=== PATIENT | male | born 1955 | race Caucasian/White ===

== ENCOUNTER 2020-03-31 02:33 | Emergency (ER) | payer OTHER ==
[2020-03-31] MEDS ORDERED: ADENOSINE INJ/PF 6 MG/2 ML SDV IV ONE ×2 (02:45→03:47)
[2020-03-31] MEDS ORDERED: NORMAL SALINE 1000 ML 1,000 ML IV ONE (02:57)
[2020-03-31 03:24] LABS: ABSOLUTE BASOPHILS # (AUTO) 0.1 10^3/uL (0.0-0.2); ABSOLUTE EOSINOPHILS # (AUTO) 0.2 10^3/uL (0.0-0.6); ABSOLUTE LYMPHOCYTES (AUTO) 3.4 10^3/uL (0.5-4.7); ABSOLUTE MONOCYTES (AUTO) 1.5 10^3/uL (0.1-1.4); ABSOLUTE NEUT (AUTO) 8.3 10^3/uL (1.7-8.2); BASOPHILS % (AUTO) 0.7 % (0-2); EOSINOPHILS % (AUTO) 1.3 % (0-6); HEMATOCRIT 48.5 % (37.9-51.0); HEMOGLOBIN 16.2 g/dL (13.5-17.0); LYMPHOCYTES % (AUTO) 25.4 % (13-45); MEAN CORPUSCULAR HEMOGLOBIN 30.1 pg (27.0-33.4); MEAN CORPUSCULAR HGB CONC 33.3 g/dL (32.0-36.0); MEAN CORPUSCULAR VOLUME 90 fl (80-97); MONOCYTES % (AUTO) 10.9 % (3-13); PLATELET COUNT 262 10^3/uL (150-450); RED BLOOD COUNT 5.37 10^6/uL (4.35-5.55); RED CELL DISTRIBUTION WIDTH 13.3 % (11.5-14.0); SEGMENTED NEUTROPHILS % (AUTO) 61.7 % (42-78); TOTAL CELLS COUNTED % (AUTO) 100 %; WHITE BLOOD COUNT 13.4 10^3/uL (4.0-10.5)
--- NOTE | 2020-03-31 03:24 | ER Document Report ---
Entered by MAXINE MANZO SCRIBE 03/31/20 0254 Acting as scribe for:KRISTINA CHILDS IV, MD ED Cardiac - General Mode of Arrival: Wheelchair Information source: Patient TRAVEL OUTSIDE OF THE [place] IN LAST 30 DAYS: No <KRISTINA CHILDS IV - Last Filed: 03/31/20 05:43> <HECTOR GONZALES Krissy - Last Filed: 03/31/20 09:14> - General Chief Complaint: Palpitations Stated Complaint: REPORTS HIGH HEART RATE Primary Care Provider: JASE DONATO MD [Primary Care Provider] - Follow up as needed Notes: This 64 year old male patient presents to the ED today with complaints of palpitations that woke him out of his sleep around 0045 this morning. Patient states that he has had similar episodes of palpitations in the past that would subside about 30-45 minutes after drinking milk; however, this episode persisted so he decided to come to the ED for evaluation. He also notes a headache, which is different from his previous episodes. He admits that he was working outside in the heat from around [id number] yesterday evening and that he drank about x4 bottles of water. He reports a family history of "heart trouble", but denies a personal history. (KRISTINA CHILDS IV) - Related Data Allergies/Adverse Reactions: No Known Allergies Allergy (Unverified 03/31/20 03:04) Past Medical History - General Information source: Patient - Social History Smoking Status: Unknown if Ever Smoked Cigarette use (# per day): No Chew tobacco use (# tins/day): No Smoking Education Provided: No Family History: Reviewed & Not Pertinent, CAD - Reports "heart trouble" Patient has suicidal ideation: No Patient has homicidal ideation: No Endocrine Medical History: Reports: Hx Diabetes Mellitus Type 2 <KRISTINA CHILDS IV - Last Filed: 03/31/20 05:43> Review of Systems - Review of Systems Constitutional: No symptoms reported EENT: No symptoms reported Cardiovascular: See HPI, Palpitations Respiratory: No symptoms reported Gastrointestinal: No symptoms reported Genitourinary: No symptoms reported Male Genitourinary: No symptoms reported Musculoskeletal: No symptoms reported Skin: No symptoms reported Hematologic/Lymphatic: No symptoms reported Neurological/Psychological: See HPI, Headaches -: Yes All other systems reviewed and negative <KRISTINA CHILDS IV - Last Filed: 03/31/20 05:43> Physical Exam - General General appearance: Alert In distress: None - HEENT Head: Normocephalic, Atraumatic Eyes: Normal Pupils: PERRL - Respiratory Respiratory status: No respiratory distress Chest status: Nontender Breath sounds: Normal Chest palpation: Normal - Cardiovascular Rhythm: Regular, Tachycardia Heart sounds: Normal auscultation Murmur: No Friction rub: No Gallop: None auscultated - Abdominal Inspection: Normal Distension: No distension Bowel sounds: Normal Tenderness: Nontender - Abdomen soft Organomegaly: No organomegaly - Back Back: Normal, Nontender - Extremities General upper extremity: Normal inspection General lower extremity: Normal inspection - Neurological Neuro grossly intact: Yes Orientation: AAOx4 [place] Coma Scale Eye Opening: Spontaneous [place] Coma Scale Verbal: Oriented [place] Coma Scale Motor: Obeys Commands [place] Coma Scale Total: 15 - Psychological Associated symptoms: Normal affect, Normal mood - Skin Skin Temperature: Warm Skin Moisture: Dry Skin Color: Normal <KRISTINA CHILDS IV - Last Filed: 03/31/20 05:43> - Vital signs Vitals: Temp Pulse BP Pulse Ox 97.9 F 174 H 140/97 H 95 03/31/20 02:38 03/31/20 02:38 03/31/20 02:38 03/31/20 02:38 Course - Laboratory Result Diagrams: 03/31/20 03:09 03/31/20 03:09 - Diagnostic Test Radiology reviewed: Reports reviewed <KRISTINA CHILDS IV - Last Filed: 03/31/20 05:43> - Laboratory Result Diagrams: 03/31/20 03:09 03/31/20 03:09 <HECTOR GONZALES - Last Filed: 03/31/20 09:14> - Re-evaluation Re-evalutation: 03/31/20 05:37 Results of ED MSE discussed with patient and patient's spouse. Patient states he recently started Januvia and has a history of elevated blood sugar levels. Patient states he also has a history of hyperthyroidism which he takes medication for. Patient states he has some burning in his chest; he is uncertain as to whether or not this is related to the nachos he ate earlier. This MD ordered a repeat EKG which does not show any evidence of any acute ST elevation or depression patterns. This MD informed the patient and patient's spouse that I plan to order a repeat Wan troponin level 3 hours from the initial for comparison given he is describing a burning in his chest. (KRISTINA CHILDS IV) 03/31/20 09:11 Patient pending a second troponin and once that results patient may be discharged home. Patient has been seen by Dr. brown who had completely worked up patient regarding his tachycardia that he presented with. Patient then complained of chest burning that has resolved. Pending troponin has resulted and it is flat at 0.012 not showing any increase over baseline. Patient is hemodynamically stable not showing any signs of distress at this time. Patient also has diabetes mellitus and thyroid disease. Patient is on numerous m edications including medications to control diabetes and thyroid disease. 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 (HECTOR GONZALES) - Vital Signs Vital signs: Temp Pulse Resp BP Pulse Ox 97.9 F 174 H 13 142/88 H 96 03/31/20 02:38 03/31/20 02:38 03/31/20 09:01 03/31/20 09:00 03/31/20 09:01 - Laboratory Laboratory results interpreted by me: 03/31/20 03/31/20 03/31/20 03:09 03:09 03:09 WBC 13.4 H Absolute Neuts (auto) 8.3 H Absolute Monos (auto) 1.5 H Sodium 131.8 L Glucose 434 H* TSH 5.63 H - EKG Interpretation by Me Additional EKG results interpreted by me: 03/31/20 05:40 EKG obtained at 0247 hrs. on 03/31/2020 was interpreted by this MD. Findings sinus tachycardia, heart rate 160, normal axis, morphology appears to be that of SVT. ST segments are nonspecific. Impression: SVT EKG obtained on 03/31/2020 at 0509 hrs. was interpreted by this MD. Findings: Normal sinus rhythm, heart rate 73, left axis deviation appears to be present, P waves preceding QRS complexes, QRS complexes appear narrow, there are no obvious patterns of ST segment elevation or depression present to suggest acute myocardial ischemia or infarction. Impression: Normal sinus rhythm with LAD and nonspecific ST segments. (KRISTINA CHILDS IV) Discharge <KRISTINA CHILDS IV - Last Filed: 03/31/20 05:43> <HECTOR GONZALES - Last Filed: 03/31/20 09:14> - Discharge Clinical Impression: SVT (supraventricular tachycardia), Chest pain in adult Condition: Stable Disposition: HOME, SELF-CARE Instructions: Palpitations (Irregular or Rapid Heartrate) ([facility]) Referrals: JASE DONATO MD [Primary Care Provider] - Follow up as needed I personally performed the services described in the documentation, reviewed and edited the documentation which was dictated to the scribe in my presence, and it accurately records my words and actions.
[2020-03-31 03:45] LABS: ALKALINE PHOSPHATASE 74 U/L (38-126); ANION GAP 8 (5-19); ASPARTATE AMINO TRANSFERASE 38 U/L (17-59); BILIRUBIN,TOTAL 0.4 mg/dL (0.2-1.3); BLOOD UREA NITROGEN 20 mg/dL (7-20); CALCIUM 9.4 mg/dL (8.4-10.2); CARBON DIOXIDE 25 mmol/L (22-30); CHLORIDE 99 mmol/L (98-107); POTASSIUM 4.7 mmol/L (3.6-5.0); TOTAL PROTEIN 6.7 g/dL (6.3-8.2)
[2020-03-31 03:52] LABS: GLUCOSE 434 mg/dL (75-110)
--- NOTE | 2020-03-31 03:56 | RADIOLOGY REPORT (SQ) ---
EXAM DESCRIPTION: CT of the head without contrast CLINICAL HISTORY: headache COMPARISON: None available TECHNIQUE: Axial CT of the head obtained from the skull apex to the skull base without contrast. FINDINGS: No acute intracranial hemorrhage identified. No mass, mass effect, shift of the midline, abnormal extra-axial fluid collection or CT evidence of acute ischemic change identified. The ventricular system and sulcal spaces are age appropriate. Scattered areas of hypodensity throughout the supratentorial white matter are nonspecific and may be related to chronic small vessel ischemic change. The visualized paranasal sinuses and the mastoids are clear. No skull fracture identified. Visualized orbits and globes are unremarkable. Atherosclerotic calcification of the intracranial internal carotid arteries. IMPRESSION: 1. No acute intracranial abnormality by CT criteria. This exam was performed according to our departmental dose-optimization program, which includes automated exposure control, adjustment of the mA and/or kV according to patient size and/or use of iterative reconstruction technique.
--- NOTE | 2020-03-31 04:01 | RADIOLOGY REPORT (SQ) ---
EXAM DESCRIPTION: XR CHEST 1 VIEW COMPLETED DATE/TME: 03/31/2020 02:58 CLINICAL HISTORY: Tachycardia COMPARISON: None. FINDINGS: Single frontal view of the chest. Cardiomediastinal silhouette: Normal size and contour. Lungs: No consolidation, pneumothorax, or pleural effusion. Minimal discoid left basilar atelectasis. Bones: Degenerative change of the spine and shoulders. Leads overlie the chest. Upper abdomen: No abnormality identified. IMPRESSION: 1. No acute pneumonic process identified.
[2020-03-31] MEDS ORDERED: ASPIRIN 81 MG TABLET, CHEWABLE PO ONE (05:17)
[2020-03-31 09:07] VITALS: BP 142/88
--- NOTE | 2020-03-31 09:49 | EKG REPORT ---
SEVERITY:- BORDERLINE ECG - SINUS RHYTHM : Confirmed by: Lobito Trejo MD 31-Mar-2020 09:49:00
--- NOTE | 2020-03-31 09:50 | EKG REPORT ---
SEVERITY:- ABNORMAL ECG - SUPRAVENTRICULAR TACHYCARDIA LEFT ANTERIOR FASCICULAR BLOCK : Confirmed by: Lobiot Trejo MD 31-Mar-2020 09:49:39
== END 2020-03-31 09:26 | disposition home or self-care (01) ==
LOC: ER 02:33
DX: I47.1 Supraventricular tachycardia (principal); R07.9 Chest pain, unspecified; R51 Headache; E11.9 Type 2 diabetes mellitus without complications; E05.90 Thyrotoxicosis, unspecified without thyrotoxic crisis or storm; Z79.899 Other long term (current) drug therapy; Z82.49 Family history of ischemic heart disease and other diseases of the circulatory system
CPT/HCPCS: 93005; 99285; 96361; 96374; 36415; 83735; 84443; 85025; 80053; 84484; 71045; 70450; 93010; J7030; J0153